=== PATIENT | female | born 1955 | race Caucasian/White ===

== ENCOUNTER 2018-09-23 03:01 | Inpatient (IN) ==
--- NOTE | 2018-09-23 07:48 | Internal Med History&Physical ---
Date of Encounter: 09/24/18 Internal Medicine - H&P: HPI History of present illness: 62-year-old female presents from home with complaints of progressive for sending of shortness of breath over the next several days. The patient stated that she have long travel from [place] on the train. The patient stated that her di fficulty breathing is under associated with nonproductive cough and congestion. She denies fevers chills chest pain, orthopnea, paroxysmal nocturnal dyspnea, orthopnea, progressive worsening of lower extremity edema and history of blood clots. The patient is a heavy smoker and smoked 2 packs of cigarettes a day. The patient was evaluated by the ER staff and her chest x-ray revealed Basal predominant airway inflammation and tree-in-bud nodularity, suggesting infectious/inflammatory bronchiolitis. Aspiration related bronchiolitis is on the differential given basilar predominance. Mild mediastinal hilar lymphadenopathy, presumably reactive. The patient was started on steroid and respiratory treatment and was admitted for further evaluation and management. Past Med Surg Social Fam HX - Past Medical History Medical history: no medical history Psychiatric history: depression - Past Surgical History Additional surgical history: Cervical Surgery - Social History Smoking Status: Current every day smoker Smokeless Tobacco Status: No Alcohol use: none Drug use: none - Family History Mother Hx Family Cardiac Disorders: Yes Internal Medicine - H&P: Meds Acetaminophen/Dp-Hydramine [[employer] Pm Powder Packet] 1 pack PO 6XD PRN 09/23/18 [History] PARoxetine HCl [Paroxetine HCl] 30 mg PO DAILY 09/23/18 [History] Allergy/AdvReac Type Severity Reaction Status Date / Time levofloxacin [From Levaquin] Allergy Itching Verified 09/23/18 01:35 All Systems PM: A 10-system review of systems was performed and is negative for pertinent findings except as documented above in the HPI. - Constitutional Vitals: Temp Pulse Resp BP Pulse Ox 97.7 F 83 17 102/67 90 09/23/18 06:51 09/23/18 06:51 09/23/18 06:51 09/23/18 06:51 09/23/18 06:51 General appearance: Present: A&O X 3 - Head Head exam: Present: atraumatic, normocephalic - Neck Neck exam general surgery: Present: supple, trachea midline. Absent: lymphadenopathy - Respiratory Respiratory exam: Present: rhonchi, wheezes. Absent: accessory muscle use, rales - Cardiovascular Cardiovascular exam: Present: RRR, +S1, +S2. Absent: diastolic murmur, gallop, rubs, systolic murmur - GI/Abdominal GI/Abdominal exam: Present: normal bowel sounds, soft, no peritoneal signs. Absent: distended, tenderness - Extremities Exam Extremities exam: Present: warm, radial pulses palpable and symmetrical. Absent: calf tenderness, cyanotic, pedal edema - Assessment and Plan (1) COPD exacerbation Current Visit: Yes Status: Suspected Assessment and plan: - SOB due to * COPD exacerbation caused by URTI, allergen exposure, medication nonocompliance *Bronchitis *Pneumonia - infiltrate on CXR PLAN: - Aerosols q 4 hr and PRN SOB - Solu-medrol 40 mg IV q 6 hr - O2 to keep SpO2 higher than 92% (SpO higher than 95% if CAD) - CBCD, BMP in AM - Sputum Gram stain, C+S - ABs (2) Pneumonia Current Visit: Yes Status: Acute Qualifiers: Pneumonia type: due to unspecified organism Laterality: unspecified laterality Lung location: lower lobe of lung Qualified Code(s): J18.1 - Lobar pneumonia, unspecified organism (3) DVT prophylaxis Current Visit: Yes Status: Acute - Time Spent With Patient Total time spent is greater than 50% in coordination of care (as documented) at patient's floor/unit and/or counseling patient:
[2018-09-23] MEDS ORDERED: Naloxone 0.4 MG/ML INJ IVP PRN (08:36)
[2018-09-23] MEDS ORDERED: Ondansetron 4 MG/2 ML VIAL IVP PRN (08:36)
[2018-09-23] MEDS ORDERED: Acetaminophen 325 MG TABLET PO PRN (08:36)
[2018-09-23] MEDS ORDERED: Levofloxacin 500 MG/100 ML 500 MG/100 ML BAG IVPB SCH (09:00)
--- NOTE | 2018-09-23 11:06 | Pulmonology Consult Note ---
Date of Encounter: 09/23/18 Time of Encounter: 11:00 Assessment and Plan (1) Pneumonia Current Visit: Yes Status: Acute I have seen and examined the patient the presence of the nurse and reviewed CT chest results with the patient. Patient has tree in bud abnormalities and a CT chest which is most likely infectious/inflammatory in nature and since the concern this can be seen sometimes in a typical mycobacterium such as Mycobacterium avium, I have explained to the patient with could empirically treat her for community-acquired pneumonia and COPD exacerbation versus bronchoscopy and checking for infection versus inflammation and she agreed to have bronchoscopy done. When she does for her for tomorrow and advised patient and told the nurse to keep her nothing by mouth postmidnight. A bronchoscopy is recommended. The procedure , risks, benefits, complications, and expected outcomes have been reviewed. Benefits of diagnosis, as well as risks to include bleeding, infection, pneumothorax which may require surgical intervention, and in a small population. The patient is aware that sometimes test is nondiagnostic. Discussed with patient and agrees to proceed. Thank you very much for consultation. Qualifiers: Pneumonia type: due to unspecified organism Laterality: unspecified laterality Lung location: lower lobe of lung Qualified Code(s): J18.1 - Lobar pneumonia, unspecified organism (2) Mediastinal adenopathy Current Visit: Yes Status: Acute This is most likely reactive in nature. (3) COPD exacerbation Current Visit: Yes Status: Suspected Patient is on bronchodilators and I will add systemic Symbicort and continue systemic steroids at this time. Have advised patient to follow-up as outpatient, however she would not stay in this area and advised her whatever she would go is to find a hunter trapper because she will need pulmonary function test and outpatient treatment. I also advised her to quit smoking in order to feel better. History of Present Illness Consult date: 09/23/18 Requesting physician: Carla Christiansen Reason for consult: pneumonia Chief complaint: Shortness of Breath History of present illness: This is a pleasant 62 year old female with significant history of smoking and continue to smoke tobacco who present to the hospital with increase her baseline dyspnea, nonproductive cough and wheezing. She stated she has been congested in her chest and she has diagnosed herself with COPD. She denies any fever or chills and she has CT chest was done and showed abnormalities and pulmonary consulted for an evaluation. Patient stated she has been active and she denies any history of TB. She has been travelling on train. She doesn't have hunter trapper and she is not staying around here. She will travel to see her kids. She denies any exotic animals and she has had weight loss. She has no hemoptsis and previously she had PPD and she said they could not say if it was positive or negative. Past Med Surg Social Fam HX - Past Medical History Medical history: no medical history Additional medical history: smoker Psychiatric history: depression - Past Surgical History Surgical History: cholecystectomy Additional surgical history: Cervical Surgery, tonsils, - Social History Smoking Status: Current every day smoker Packs per day: 2 Smokeless Tobacco Status: No Alcohol use: none Drug use: none - Family History Mother Hx Family Cardiac Disorders: Yes Medications and Allergies Acetaminophen/Dp-Hydramine [[employer] Pm Powder Packet] 1 pack PO 6XD PRN 09/23/18 [History] PARoxetine HCl [Paroxetine HCl] 30 mg PO DAILY 09/23/18 [History] Allergy/AdvReac Type Severity Reaction Status Date / Time levofloxacin [From Levaquin] Allergy Itching Verified 09/23/18 01:35 All Systems: The remainder of the systems were reviewed and are negative Physical Examination Vital Signs: Refer to nursing documentation for vital signs General appearance: no acute distress Eyes: nonicteric ENT: oropharynx moist Mallampati (class): 2 Neck: supple, no lymphadenopathy Effort: mildly labored Inspection: hyperextended Auscultation: bilateral: diminished breath sounds, rhonchi Percussion: bilateral: not dull Cardiovascular: regular rate and rhythm Gastrointestinal: normoactive bowel sounds, non-distended Integumentary: normal Extremities: no cyanosis, no edema, no clubbing normal mental status, non-focal exam mood appropriate Results - Diagnostic Findings CT scan - chest: report reviewed, image reviewed - Clinical Findings Intake & Output: Intake & Output 09/22/18 09/23/18 09/23/18 23:59 07:59 15:59 Weight 62.369 kg Consult Discharge Plan - Plan Referrals: NONE,PCP [Primary Care Provider] -
[2018-09-23] MEDS: Ipratropium/Albuterol Neb 3 ML IH SCH ×3 (11:19→22:09)
[2018-09-23] MEDS: *HR* HYDROcodone/Acet 5/325 mg TABLET PO PRN ×2 (11:27→20:02)
[2018-09-23] MEDS: MethylPREDNISolone 40 MG/ML VIAL IVP SCH ×2 (11:27→17:44)
[2018-09-23] MEDS: Nicotine 14 MG PATCH.TD24 TD SCH (13:26)
[2018-09-23] MEDS: Azithromycin 500 MG in D5% in Water 250 ML IVPB SCH (13:29)
[2018-09-23] MEDS: Budesonide/Formoterol 160/4.5 1 PUFF INH IH SCH (22:56)
[2018-09-24] MEDS: MethylPREDNISolone 40 MG/ML VIAL IVP SCH ×5 (00:53→23:25)
[2018-09-24] MEDS ORDERED: *HR* LORazepam 2 MG/ML VIAL IVP ONE (01:27)
[2018-09-24] MEDS: Ipratropium/Albuterol Neb 3 ML IH SCH ×4 (03:55→22:29)
[2018-09-24] MEDS: *HR* HYDROcodone/Acet 5/325 mg TABLET PO PRN ×3 (05:38→23:25)
[2018-09-24 06:38] LABS: Basophils % 0.1 %; Hematocrit 46.1 % (35.3-44.9); Hemoglobin 14.8 g/dL (11.5-15.4); Immature Granulocytes % 0.5 % (0-4); Lymphocytes # 0.6 K/mcL (0.6-4.6); Lymphocytes % 3.7 %; Mean Corpuscular HGB Conc 32.1 g/dL (31.6-35.5); Mean Corpuscular Volume 102.7 fL (83.0-100.0); Mean Platelet Volume 10.1 fL (9.4-12.4); Monocytes # 0.4 K/mcL (0.0-1.3); Monocytes % 2.4 %; Neutrophils # 14.2 K/mcL (1.6-8.9); Platelet Count 305 K/mcL (140-400); Red Blood Count 4.49 M/mcL (3.82-4.97); Red Cell Distribution Width 13.1 % (11.5-14.5); Segmented Neutrophils % 93.3 %; White Blood Count 15.2 K/mcL (4.3-11.1)
[2018-09-24 06:47] LABS: INR 0.8
[2018-09-24 06:49] LABS: Activated Partial Thrombo Time 26.8 Seconds (26.0-36.0)
[2018-09-24 06:51] LABS: Prothrombin Time 8.9 Seconds (9.4-12.1)
[2018-09-24] MEDS ORDERED: Lidocaine Viscous Oral Soln 15 ML SOLUTION ONE (06:54)
[2018-09-24] MEDS ORDERED: *HR* FentaNYL (PF) 100 MCG/2 ML VIAL ONE (06:54)
[2018-09-24] MEDS ORDERED: *HR* Midazolam HCl 5 MG/5 ML VIAL IVP ONE ×2 (06:55→07:08)
[2018-09-24 06:56] LABS: Chol/HDL Ratio 2.1 (0-4.9); Magnesium 1.7 mg/dL (1.6-2.6); Phosphorous 3.4 mg/dL (2.7-4.5)
[2018-09-24 06:57] LABS: Alanine Aminotransferase 13 Units/L (7-52); Albumin 3.8 g/dL (3.5-5.7); Albumin/Globulin Ratio 1.2 (1.1-2.2); Alkaline Phosphatase 82 Units/L (34-104); Aspartate Amino Transferase 13 Units/L (13-39); BUN/Creatinine Ratio 42 (6-26); Bilirubin,Total 0.2 mg/dL (0.3-1.0); Blood Urea Nitrogen 22 mg/dL (8-23); Calcium 9.6 mg/dL (8.6-10.3); Carbon Dioxide 28 mEq/L (23-29); Chloride 102 mEq/L (98-107); Globulin 3.2 g/dL (2.4-3.5); Glucose 140 mg/dL (70-105); Osmolality,Calculated 294 (280-300); Sodium 139 mEq/L (136-145); eGFR For African Americans > 60 (> 60); eGFR For Non-African Americans > 60 (> 60)
[2018-09-24] MEDS ORDERED: Tetracaine/Benzocaine/Butamben 1 SPRAY AEROSOL MM ONE (07:08)
[2018-09-24] MEDS ORDERED: Albuterol 2.5 MG/3 ML NEBULIZER IH ONE (07:08)
[2018-09-24] MEDS ORDERED: *HR* EPINEPHrine 1 MG/10 ML SYRINGE INTRATRACH PRN (07:08)
[2018-09-24] MEDS ORDERED: *HR* FentaNYL (PF) 100 MCG/2 ML VIAL IVP ONE (07:08)
[2018-09-24] MEDS ORDERED: Lidocaine Viscous Oral Soln 15 ML SOLUTION MM ONE (07:08)
--- NOTE | 2018-09-24 07:08 | Pre-Sedation Evaluation ---
Pre-sedation evaluation - Pre-sedation checklist Date of procedure: 09/24/18 Procedure: BRONCH Recent Vitals: Last Vital Signs Temp 97.9 F 09/24/18 03:12 Pulse 98 09/24/18 03:12 Resp 17 09/24/18 03:58 BP 102/69 09/24/18 03:12 Pulse Ox 92 09/24/18 03:58 H&P (including ROS) documented in medical record: Yes Previous reaction to sedatives/anesthetics: No Dietary Status: NPO 6 hours prior to procedure Possible difficult airway: No ASA Classification *see protocol: CLASS III-Severe systemic disease Plan of Care: Pt appropriate candidate for procedure/moderate/conscious sedation, Risks/benefits of procedure/sedation discussed w/ patient/family
[2018-09-24] MEDS: 0.9 % Sodium Chloride 1,000 ML IVC SCH (07:10)
[2018-09-24] MEDS ORDERED: Albuterol 2.5 MG/3 ML NEBULIZER ONE (07:26)
[2018-09-24] MEDS ORDERED: Nicotine 14 MG PATCH.TD24 TD SCH (09:00)
[2018-09-24] MEDS: Budesonide/Formoterol 160/4.5 1 PUFF INH IH SCH ×2 (09:51→20:43)
[2018-09-24] MEDS: Nicotine 14 MG PATCH.TD24 TD SCH (10:33)
[2018-09-24] MEDS: cefTRIAXone 1,000 MG in Water for inj. (sterile) 20 ML 10 ML IVP SCH (11:32)
[2018-09-24] MEDS: Azithromycin 500 MG in D5% in Water 250 ML IVPB SCH (11:37)
--- NOTE | 2018-09-24 14:13 | Internal Med Progress Note ---
Hospitalist Progress Note - Encounter Date of Encounter: 09/24/18 Time of Encounter: 13:30 - Subjective Interval History: Ms. Hannon is a 62-year-old female with known past medalist of anxiety and chronic tobacco dependence pt presented to ER with complaints of progressively worsening shortness of breath and cough with expectoration. The patient stated that she have long travel from [place] on the train. The patient was evaluated by the ER staff and her chest x-ray showed b/l eleazar bronchial thickening. Her CTA of chest negative for PE..She does have Basal predominant airway inflammation and tree-in-bud nodularity, suggesting infectious/inflammatory bronchiolitis. She was hypoxic in the ER. 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 She was started on empirical abx Rocephin and Azithromycin. She was evaluated by pulm who did bronchoscope this morning for BAl, found to have b/l PNA and significant mucoid secretions found through out the tracheal bronchial tree. Currently pt is on 4 lit O2 through [place] - Exam Vitals: Temp Pulse Resp BP Pulse Ox 98.4 F 102 18 110/72 91 09/24/18 12:06 09/24/18 12:06 09/24/18 12:06 09/24/18 12:09/24/18 12:06 Exam: Gen: Alert, awake, Oriented to time,place and person Chest: Diminished breath sounds B/L, moderate wheezing, No crackles, No rales, ronchi+ Heart: S1S2+ RRR No murmurs Abd: Soft, NT, BS +, No organomegaly Ext: No edema, pulses are palpable, No calf tenderness Neuro : No acute focal neuro deficits noticed Skin: No rash. - Assessment and Plan (1) Pneumonia Current Visit: Yes Status: Acute Assessment and Plan: She does have moderate lobular pneumonia mostly bacterial continue empirical antibiotic IV Rocephin and azithromycin s/p Bronchoscope with BAL and wash out will f.u on fluid Gram staining and cx results sent for fungal cx too Patient does need to stay in the hospital more than 2 midnights due to his complex medical problems. So we will change him to full admission today. I did review my colleague Dr. Christiansen's H & P including HPI, PMH, PSH, FH, SH, and ROS no changes noticed (2) COPD exacerbation Current Visit: Yes Status: Acute Assessment and Plan: Improving Start tapering steroids cont frequent bronchodilators continue on oxygen try to wean her off the oxygen as she tolerates She may need INH steroids too will talk to Pulm (3) Acute respiratory failure with hypoxia Current Visit: Yes Status: Acute Assessment and Plan: Due to PNA + COPD exacerbation cont above care (4) Mediastinal adenopathy Current Visit: Yes Status: Acute Assessment and Plan: mostly due to reactive with pneumonia need repeat CT in 4-6 weeks out pt fu with Pulm (5) Tobacco dependence Current Visit: Yes Status: Acute Assessment and Plan: Counseled to quit smoking placed on nicotine patch (6) Anxiety Current Visit: Yes Status: Acute Assessment and Plan: resumed home meds (7) DVT prophylaxis Current Visit: Yes Status: Acute Assessment and Plan: on SQ heparin - Time Spent with Patient Total time spent is greater than 50% in coordination of care (as documented) at patient's floor/unit and/or counseling patient: Internal Medicine: Result - Labs CBC & Chem 7: 09/24/18 05:43 09/24/18 05:43 Labs: Short CBC 09/24/18 Range/Units 05:43 WBC 15.2 H (4.3-11.1) K/mcL Hgb 14.8 (11.5-15.4) g/dL Hct 46.1 H (35.3-44.9) % Plt Count 305 (140-400) K/mcL Neutrophils # 14.2 H (1.6-8.9) K/mcL BMP 09/24/18 05:43 Sodium 139 Potassium 5.0 Chloride 102 Carbon Dioxide 28 BUN 22 Creatinine 0.52 L Glucose 140 H Calcium 9.6 Cardiac Enzymes 09/23/18 09/23/18 Range/Units 14:42 21:22 Troponin I < 0.03 < 0.03 (< 0.04) ng/mL Liver Function 09/24/18 Range/Units 05:43 Total Bilirubin 0.2 L (0.3-1.0) mg/dL AST 13 (13-39) Units/L ALT 13 (7-52) Units/L Alkaline Phosphatase 82 (34-104) Units/L Albumin 3.8 (3.5-5.7) g/dL - ABG Interpretation ABG results: PT/INR, D-dimer PT 8.9 Seconds (9.4-12.1) L 09/24/18 05:43 Consult Discharge Plan - Plan Referrals: NONE,PCP [Primary Care Provider] - (1) Pneumonia Qualifiers: Pneumonia type: due to unspecified organism Laterality: unspecified laterality Lung location: lower lobe of lung Qualified Code(s): J18.1 - Lobar pneumonia, unspecified organism
[2018-09-24 14:16] LABS: Appearance of Body Fluid Cloudy (Clear); Volume of Body Fluid 20 mL
[2018-09-24] MEDS: *HR* Heparin 5,000 UNIT/ML VIAL SQ SCH (17:16)
[2018-09-25] MEDS: 0.9 % Sodium Chloride 1,000 ML IVC SCH ×2 (00:37→22:52)
[2018-09-25 00:51] LABS: Basophils % 0.1 %; Hematocrit 42.6 % (35.3-44.9); Hemoglobin 13.5 g/dL (11.5-15.4); Immature Granulocytes % 0.5 % (0-4); Lymphocytes # 0.6 K/mcL (0.6-4.6); Lymphocytes % 4.6 %; Mean Corpuscular HGB Conc 31.7 g/dL (31.6-35.5); Mean Corpuscular Hemoglobin 32.9 pg (28.0-33.3); Mean Corpuscular Volume 103.9 fL (83.0-100.0); Mean Platelet Volume 9.5 fL (9.4-12.4); Monocytes # 0.6 K/mcL (0.0-1.3); Monocytes % 4.7 %; Neutrophils # 11.7 K/mcL (1.6-8.9); Platelet Count 277 K/mcL (140-400); Red Cell Distribution Width 13.1 % (11.5-14.5); Segmented Neutrophils % 90.1 %
[2018-09-25 01:10] LABS: BUN/Creatinine Ratio 40 (6-26); Blood Urea Nitrogen 22 mg/dL (8-23); Calcium 8.8 mg/dL (8.6-10.3); Carbon Dioxide 26 mEq/L (23-29); Chloride 104 mEq/L (98-107); Glucose 140 mg/dL (70-105); Osmolality,Calculated 290 (280-300); Potassium 4.6 mEq/L (3.5-5.1); Sodium 137 mEq/L (136-145); eGFR For African Americans > 60 (> 60); eGFR For Non-African Americans > 60 (> 60)
[2018-09-25] MEDS: Ipratropium/Albuterol Neb 3 ML IH SCH ×4 (04:36→22:14)
[2018-09-25] MEDS: *HR* Heparin 5,000 UNIT/ML VIAL SQ SCH ×2 (04:59→17:49)
[2018-09-25] MEDS: MethylPREDNISolone 40 MG/ML VIAL IVP SCH ×4 (04:59→23:05)
[2018-09-25] MEDS: *HR* HYDROcodone/Acet 5/325 mg TABLET PO PRN ×2 (05:38→20:19)
--- NOTE | 2018-09-25 06:38 | Pulmonology Progress Note ---
Date of Encounter: 09/25/18 Time of Encounter: 06:38 Assessment and Plan (1) Pneumonia Current Visit: Yes Status: Acute Patient has evidence of acute pneumonia and with some tree-in-bud opacities bilaterally and this is a nonspecific finding but can be seen in atypical infection such as nontuberculous mycobacterium she underwent bronchoscopy which thus far is negative I explained to the patient it may take up to 72 hours to several weeks to have final results from the bronchoscopy. She is on antimicrobial regimen which is appropriate and she should continue to receive antibiotics for about 7 days is to upon clinical course. She will need a repeat CT scan in 6 weeks. I encouraged her to follow-up in the outpatient pulmonary clinic as she will be in the community for the next month or so we can see her in 1-2 weeks at the time of discharge to go over the rest of her results and to make sure that she has appropriate follow-up which will likely be in [place] - regardless she should get established with pulmonary either here or closer to he r home Qualifiers: Pneumonia type: due to unspecified organism Laterality: unspecified laterality Lung location: lower lobe of lung Qualified Code(s): J18.1 - Lobar pneumonia, unspecified organism (2) COPD exacerbation Current Visit: Yes Status: Acute This is improving she should have a steroid burst 40 mg 5 days of prednisone and continue bronchodilators scheduled while in the hospital start Symbicort 160/4.5 and she should be discharged with this to be used twice a day and a short acting beta agonist such as albuterol at discharge (3) Mediastinal adenopathy Current Visit: Yes Status: Acute This is likely reactive but she is at risk for malignancy so she will need radiographic surveillance (4) Tobacco dependence Current Visit: Yes Status: Acute Tobacco cessation counseling given Pulmonary will sign off Do not hesitate to call me with any questions or concerns Angelito Callahan [phone] Subjective Principal diagnosis: Pneumonia Interval history: Ms Hannon that she is improving and she is feeling ready to be going home soon. Occasional cough but denies any hemoptysis she is much less short of breath Objective PUL Vital signs: Last Vital Signs Temp 98 F 09/25/18 03:37 Pulse 91 09/25/18 03:37 Resp 14 09/25/18 04:37 BP 130/80 09/25/18 03:37 Pulse Ox 95 09/25/18 04:37 General appearance: no acute distress Eyes: nonicteric ENT: oropharynx moist Auscultation: bilateral: rhonchi (Scattered) Cardiovascular: regular rate and rhythm Gastrointestinal: soft, non-tender Integumentary: normal Extremities: no cyanosis, no edema, no clubbing Musculoskeletal: no deformities normal mental status, non-focal exam mood appropriate Results - Laboratory Findings CBC and BMP: 09/25/18 00:31 09/25/18 00:31 PT/INR, D-dimer PT 8.9 Seconds (9.4-12.1) L 09/24/18 05:43 Abnormal lab findings: Abnormal lab results WBC 13.0 K/mcL (4.3-11.1) H 09/25/18 00:31 Hct 46.1 % (35.3-44.9) H 09/24/18 05:43 MCV 103.9 fL (83.0-100.0) H 09/25/18 00:31 11.7 K/mcL (1.6-8.9) H 09/25/18 00:31 PT 8.9 Seconds (9.4-12.1) L 09/24/18 05:43 0.55 mg/dL (0.60-1.20) L 09/25/18 00:31 40 (6-26) H 09/25/18 00:31 Glucose 140 mg/dL (70-105) H 09/25/18 00:31 0.2 mg/dL (0.3-1.0) L 09/24/18 05:43 86 mg/dL (40-59) H 09/24/18 05:43 Fluid Appearance Cloudy (Clear) A 09/24/18 Unknown - Microbiology Findings Microbiology Findings: Microbiology, Last 48 Hours 09/24/18 Unknown Respiratory Culture - Preliminary Right Lower Lobe Lung 09/24/18 Unknown Fungal Culture - Preliminary Left Lower Lobe Lung Culture is incubating. 09/24/18 Unknown Respiratory Culture - Preliminary Left Lower Lobe Lung 09/24/18 Unknown Fungal Culture - Preliminary Right Lower Lobe Lung Culture is incubating. - Diagnostic Findings Chest x-ray: report reviewed, image reviewed CT scan - chest: report reviewed, image reviewed - Clinical Findings Intake & Output: Intake & Output 09/24/18 09/24/18 09/25/18 15:59 23:59 07:59 Intake Total 240 / 240 Balance 240 / 240 Weight 67.245 kg Consult Discharge Plan - Plan Referrals: NONE,PCP [Primary Care Provider] -
[2018-09-25] MEDS: cefTRIAXone 1,000 MG in Water for inj. (sterile) 20 ML 10 ML IVP SCH (08:43)
[2018-09-25] MEDS: Nicotine 14 MG PATCH.TD24 TD SCH (08:45)
[2018-09-25] MEDS: Budesonide/Formoterol 160/4.5 1 PUFF INH IH SCH ×2 (10:32→22:14)
--- NOTE | 2018-09-25 11:09 | Internal Med Progress Note ---
Hospitalist Progress Note - Encounter Date of Encounter: 09/25/18 Time of Encounter: 11:00 - Subjective Interval History: Ms Hannon is currently admitted for acute pneumonia. She remains moderate to high risk due to potential for worsening respiratory status. Ms Hannon is feeling better since bronchoscopy. No fever or chills. Coughing less now. No CP. No GI issues. - Exam Vitals: Temp Pulse Resp BP Pulse Ox 98.5 F 89 16 127/79 95 09/25/18 06:52 09/25/18 06:52 09/25/18 10:33 09/25/18 06:52 09/25/18 10:33 Exam: General: Alert and oriented. Comfortable at this time. Pleasant. Skin: Normal color, no rash, H: Normocephalic. EENT: EOMI, Mucus membranes moist. Cardiovascular: Normal S1 & S2, no murmurs Pulse regular. Not tachycardic Lungs: Scattered rhonchi. No wheeze now. Abdomen: Soft, non-tender,Normal bowel sounds. Extremities: No deformity, no edema Neurological: Normal cognition and motor skills. Pulses: radial pulses normal +2. Rest of the physical exam is non contributory - Assessment and Plan (1) Acute respiratory failure with hypoxia Current Visit: Yes Status: Acute Assessment and Plan: Pt presented with acute resp failure - now is s/p bronchoscopy. Continue wean oxygen as able. (2) Pneumonia Current Visit: Yes Status: Acute Assessment and Plan: Pt presented with worsening dyspnea and cough. Had bronchoscopy and removal of mucus. At this time she feels improved. Cultures are pending. She is on IV abx and will continue now pending culture results. (3) Mediastinal adenopathy Current Visit: Yes Status: Acute Assessment and Plan: mostly due to reactive with pneumonia need repeat CT in 4-6 weeks Pulm to see outpatient. (4) COPD exacerbation Current Visit: Yes Status: Acute Assessment and Plan: Overall improving. Continue aerosols, steroids, abx. (5) Anxiety Current Visit: Yes Status: Acute Assessment and Plan: resumed home meds (6) Tobacco abuse Current Visit: Yes Status: Chronic Assessment and Plan: Cessation counselling. - Time Spent with Patient Total time spent is greater than 50% in coordination of care (as documented) at patient's floor/unit and/or counseling patient: Internal Medicine: Result - Labs CBC & Chem 7: 09/25/18 00:31 09/25/18 00:31 Labs: Short CBC 09/25/18 Range/Units 00:31 WBC 13.0 H (4.3-11.1) K/mcL Hgb 13.5 (11.5-15.4) g/dL Hct 42.6 (35.3-44.9) % Plt Count 277 (140-400) K/mcL Neutrophils # 11.7 H (1.6-8.9) K/mcL BMP 09/25/18 00:31 Sodium 137 Potassium 4.6 Chloride 104 Carbon Dioxide 26 BUN 22 Creatinine 0.55 L Glucose 140 H Calcium 8.8 - ABG Interpretation ABG results: PT/INR, D-dimer PT 8.9 Seconds (9.4-12.1) L 09/24/18 05:43 Consult Discharge Plan - Plan Referrals: NONE,PCP [Primary Care Provider] - (2) Pneumonia Qualifiers: Pneumonia type: due to other aerobic Gram-negative bacteria Laterality: unspecified laterality Lung location: lower lobe of lung Qualified Code(s): J15.6 - Pneumonia due to other Gram-negative bacteria
[2018-09-25] MEDS: Azithromycin 500 MG in D5% in Water 250 ML IVPB SCH (12:18)
[2018-09-26] MEDS: Ipratropium/Albuterol Neb 3 ML IH SCH ×4 (03:54→22:05)
[2018-09-26] MEDS: *HR* HYDROcodone/Acet 5/325 mg TABLET PO PRN ×3 (05:04→21:06)
[2018-09-26] MEDS: MethylPREDNISolone 40 MG/ML VIAL IVP SCH ×3 (05:04→20:31)
[2018-09-26] MEDS: *HR* Heparin 5,000 UNIT/ML VIAL SQ SCH ×2 (05:04→15:46)
[2018-09-26] MEDS: cefTRIAXone 1,000 MG in Water for inj. (sterile) 20 ML 10 ML IVP SCH (08:46)
[2018-09-26] MEDS: Nicotine 14 MG PATCH.TD24 TD SCH (08:47)
--- NOTE | 2018-09-26 09:13 | Internal Med Progress Note ---
Hospitalist Progress Note - Encounter Date of Encounter: 09/26/18 Time of Encounter: 09:00 - Subjective Interval History: Ms Hannon is currently admitted for acute hypoxic resp failure and COPD exac. She remains moderate to high risk due to potential for worsening clinical and respiratory status. Ms Hannon is feeling OK. She is more anxious today most likely due to stopping smoking. Coughing some. No fever or chills. No CP at this time. Trying to wean off oxygen but not able to get below 3 liters at this time. - Exam Vitals: Temp Pulse Resp BP Pulse Ox 98.2 F 80 16 132/82 94 09/26/18 07:07 09/26/18 07:07 09/26/18 07:07 09/26/18 07:07 09/26/18 07:07 Exam: General: Alert and oriented. Pleasant and interactive. Skin: Normal color, no rash, H: Normocephalic. EENT: EOMI, Mucus membranes moist. Cardiovascular: Normal S1 & S2, Pulse regular. Not tachycardic Lungs: No wheeze noted. Scant rales in R base. Abdomen: Soft, non-tender,Normal bowel sounds. Extremities: No deformity, no edema Neurological: Normal cognition and motor skills. Pulses: radial pulses normal +2. Rest of the physical exam is non contributory - Assessment and Plan (1) Acute respiratory failure with hypoxia Current Visit: Yes Status: Acute Assessment and Plan: Pt presented with acute resp failure - now is s/p bronchoscopy. Will do oxygen qualification today. (2) Pneumonia Current Visit: Yes Status: Acute Assessment and Plan: Pt presented with worsening dyspnea and cough. Had bronchoscopy and removal of mucus. At this time she feels improved. Culture with normal becki. Continue IV abx at this time. (3) Mediastinal adenopathy Current Visit: Yes Status: Acute Assessment and Plan: mostly due to reactive with pneumonia need repeat CT in 4-6 weeks Pulm to see outpatient. (4) COPD exacerbation Current Visit: Yes Status: Acute Assessment and Plan: Overall improving. Continue aerosols, steroids, abx. (5) Anxiety Current Visit: Yes Status: Acute Assessment and Plan: resumed home meds (6) Tobacco abuse Current Visit: Yes Status: Chronic Assessment and Plan: Cessation counselling. Vistaril added for anxiety. - Time Spent with Patient Total time spent is greater than 50% in coordination of care (as documented) at patient's floor/unit and/or counseling patient: Internal Medicine: Result - Labs CBC & Chem 7: 09/25/18 00:31 09/25/18 00:31 - ABG Interpretation ABG results: PT/INR, D-dimer PT 8.9 Seconds (9.4-12.1) L 09/24/18 05:43 Consult Discharge Plan - Plan Referrals: NONE,PCP [Primary Care Provider] - (2) Pneumonia Qualifiers: Pneumonia type: due to other aerobic Gram-negative bacteria Laterality: unspecified laterality Lung location: lower lobe of lung Qualified Code(s): J15.6 - Pneumonia due to other Gram-negative bacteria
[2018-09-26] MEDS: Budesonide/Formoterol 160/4.5 1 PUFF INH IH SCH ×2 (10:47→22:06)
[2018-09-26] MEDS: hydrOXYzine pamoate 25 MG CAPSULE PO PRN ×3 (10:50→21:06)
[2018-09-26] MEDS: Azithromycin 500 MG in D5% in Water 250 ML IVPB SCH (12:20)
[2018-09-27] MEDS: *HR* HYDROcodone/Acet 5/325 mg TABLET PO PRN ×3 (03:06→17:08)
[2018-09-27] MEDS: *HR* Heparin 5,000 UNIT/ML VIAL SQ SCH ×2 (03:11→17:45)
[2018-09-27] MEDS: Ipratropium/Albuterol Neb 3 ML IH SCH ×3 (04:16→15:24)
[2018-09-27 04:24] LABS: Hematocrit 49.9 % (35.3-44.9); Mean Corpuscular HGB Conc 31.7 g/dL (31.6-35.5); Mean Corpuscular Hemoglobin 32.6 pg (28.0-33.3); Mean Corpuscular Volume 103.1 fL (83.0-100.0); Mean Platelet Volume 9.5 fL (9.4-12.4); Platelet Count 284 K/mcL (140-400); Red Blood Count 4.84 M/mcL (3.82-4.97); Red Cell Distribution Width 12.9 % (11.5-14.5)
[2018-09-27 04:27] LABS: Hemoglobin 15.8 g/dL (11.5-15.4)
[2018-09-27 04:40] LABS: BUN/Creatinine Ratio 44 (6-26); Blood Urea Nitrogen 22 mg/dL (8-23); Calcium 8.9 mg/dL (8.6-10.3); Carbon Dioxide 31 mEq/L (23-29); Chloride 101 mEq/L (98-107); Glucose 113 mg/dL (70-105); Magnesium 1.6 mg/dL (1.6-2.6); Osmolality,Calculated 290 (280-300); Potassium 4.7 mEq/L (3.5-5.1); Sodium 138 mEq/L (136-145); eGFR For African Americans > 60 (> 60); eGFR For Non-African Americans > 60 (> 60)
[2018-09-27] MEDS: Nicotine 14 MG PATCH.TD24 TD SCH (08:43)
[2018-09-27] MEDS: cefTRIAXone 1,000 MG in Water for inj. (sterile) 20 ML 10 ML IVP SCH (08:44)
[2018-09-27] MEDS: MethylPREDNISolone 40 MG/ML VIAL IVP SCH (08:44)
[2018-09-27] MEDS: Budesonide/Formoterol 160/4.5 1 PUFF INH IH SCH (11:07)
[2018-09-27] MEDS: Azithromycin 500 MG in D5% in Water 250 ML IVPB SCH (13:19)
[2018-09-27 15:35] VITALS: BP 126/84
--- NOTE | 2018-09-27 17:44 | Discharge Summary ---
- NOTES TO OUTPATIENT PROVIDER Notes to Outpatient Provider: Ms Hannon presented with dyspnea. Had bronch and removal of mucus plugs. Qualified for oxygen and arranged at discharge. To follow with pulm. Orders not resulted at time of discharge: Pending orders 09/24/18 AFB Culture, Respiratory [TB] Routine AFB Smear [TB] Routine Fungal Culture [MYC] Routine Fungal Culture [MYC] Routine 09/24/18 07:26 Cytology [PTH] Routine Date of Encounter: 09/27/18 Time of Encounter: 11:30 - Discharge Diagnosis (1) Acute respiratory failure with hypoxia Priority: Primary Status: Acute (2) Pneumonia Priority: Secondary Status: Acute Qualifiers: Pneumonia type: due to other aerobic Gram-negative bacteria Laterality: unspecified laterality Lung location: lower lobe of lung Qualified Code(s): J15.6 - Pneumonia due to other Gram-negative bacteria (3) COPD exacerbation Priority: Secondary Status: Acute (4) Anxiety Priority: Secondary Status: Chronic (5) Tobacco abuse Priority: Secondary Status: Chronic Hospital course: Ms. Hannon is a 62 year old female here from [place] presented to ED with dyspnea. She was subsequently admitted. Ms Hannon was admitted to [facility]. She underwent bronchoscopy and had mucus plugs removed. She was continued on aerosols and abx and steroids. She was on oxygen and qualified at discharge. Home oxygen was arranged. She was discharged home on steroid for 5 days, 2 more days of azithromycin and aerosols. She will follow with PCP and pulmonology. She is now afebrile and ready for discharge home. Discharge discussed with: patient, nurse Time spent discussing smoking cessation with patient: 3 to 10 minutes - Time Spent with Patient Total time spent providing and/or coordinating discharge services: 38min - Discharge Medications Prescriptions: New Albuterol Sulfate [Albuterol Inhaler] 21 puff IH Q6HR PRN #1 hfa.aer.ad PRN Reason: Dyspnea Ipratropium/Albuterol Neb [Duoneb] 3 ml IH QIDR #120 inhsol Nicotine Patch [Nicoderm] 14 mg TD DAILY #30 patch.td24 predniSONE [PredniSONE] 40 mg PO DAILY #10 tablet Azithromycin [Zithromax] 250 mg PO DAILY #2 tablet hydrOXYzine pamoate [HydrOXYzine Pamoate] 25 mg PO TID #30 capsule Budesonide/Formoterol 160/4.5 [Symbicort 160/4.5] 2 puff IH BIDR #1 hfa.aer.ad Continued PARoxetine HCl [Paroxetine HCl] 30 mg PO DAILY Acetaminophen/Dp-Hydramine [Goody's Pm Powder Packet] 1 pack PO 6XD PRN PRN Reason: Headache Home Medications: Acetaminophen/Dp-Hydramine [Goody's Pm Powder Packet] 1 pack PO 6XD PRN 09/23/18 [History] PARoxetine HCl [Paroxetine HCl] 30 mg PO DAILY 09/23/18 [History] Albuterol Sulfate [Albuterol Inhaler] 21 puff IH Q6HR PRN #1 hfa.aer.ad 09/27/18 [Rx] Azithromycin [Zithromax] 250 mg PO DAILY #2 tablet 09/27/18 [Rx] Budesonide/Formoterol 160/4.5 [Symbicort 160/4.5] 2 puff IH BIDR #1 hfa.aer.ad 09/27/18 [Rx] Ipratropium/Albuterol Neb [Duoneb] 3 ml IH QIDR #120 inhsol 09/27/18 [Rx] Nicotine Patch [Nicoderm] 14 mg TD DAILY #30 patch.td24 09/27/18 [Rx] hydrOXYzine pamoate [HydrOXYzine Pamoate] 25 mg PO TID #30 capsule 09/27/18 [Rx] predniSONE [PredniSONE] 40 mg PO DAILY #10 tablet 09/27/18 [Rx] Allergies/Adverse Reactions: Allergy/AdvReac Type Severity Reaction Status Date / Time levofloxacin [From Levaquin] Allergy Itching Verified 09/23/18 01:35 Date of admission: 09/24/18 13:57 Primary care physician: PCP NONE Consults: 09/23/18 08:25 Consult to Nurse Navigator [CONS] Routine Comment: COPD 09/23/18 08:41 Consult to Pulmonology [CONS] Routine Consulting Provider: [facility] Reason for Consult: sob Time Notified: 08:42 Call Completed: Yes 09/23/18 11:02 Consult to Nurse Navigator [CONS] Routine Comment: Discharging clinician: Rigoberto Bravo Anticipated date of discharge: 09/27/18 - Constitutional Vitals: Temp Pulse Resp BP Pulse Ox 98.2 F 80 15 126/84 95 09/27/18 15:33 09/27/18 15:33 09/27/18 15:33 09/27/18 15:33 09/27/18 15:33 General appearance: Present: A&O X 3 Exam: See below - Head Head exam: Present: normocephalic - Eye Eye exam: Present: EOMI, conjuntiva pink - ENT ENT exam: Present: mucous membranes moist - Respiratory Respiratory exam: Present: decreased breath sounds, wheezes - Cardiovascular Cardiovascular exam: Present: RRR. Absent: systolic murmur, tachycardia - GI/Abdominal GI/Abdominal exam: Present: soft. Absent: tenderness - Extremities Exam Extremities exam: Present: warm. Absent: tenderness - Neurological Exam Neurological exam: Present: alert, oriented X3 - Skin Skin exam: Present: erythema, warm. Absent: rash - Patient Status Disposition: Home, Self-Care Condition: Fair Functional capacity at discharge: independent ambulation Overall status at discharge: patient is progressing back to baseline - Discharge Instructions Follow Up With: NONE,PCP [Primary Care Provider] - Additional Instructions: Call [facility] when you get to your daughter's house to have oxygen equipment delivered. Their phone number is #[phone]. Follow up with pulmonary office in 2-3 weeks - Diet and Activity Activity: increase activity as tolerated Diet: advance to your usual diet
== END 2018-09-27 19:33 | disposition home or self-care (01) | DRG 177 ==
LOC: 3BNU → SUATTDRO 09-24 13:57
PROVIDERS: ADMIT Internal Medicine; ATTEND Internal Medicine